=== PATIENT | female | born 1965 | race Caucasian/White ===

== ENCOUNTER 2017-02-06 07:54 | Inpatient (IN) | payer BC ==
[2017-02-06] MEDS ORDERED: 0.9 % SODIUM CHLORIDE 1,000 ML BAG IV ONE (07:55)
[2017-02-06] MEDS ORDERED: ONDANSETRON HCL IV 4 MG/2 ML VIAL IV ONE (07:55)
[2017-02-06] MEDS ORDERED: MORPHINE SULFATE 5 MG/ML PFS IVP ONE ×3 (07:56→12:12)
--- NOTE | 2017-02-06 08:06 | Emergency Department Record ---
History of Present Illness - General Chief Complaint: Abdominal Pain Stated Complaint: ABD PAIN Time Seen by Provider: 02/06/17 07:55 Source: Patient, Family Mode of Arrival: Ambulatory Limitations: No limitations - History of Present Illness Initial Comments: 51 yo presents abdominal pain that started at 4am. She has cramps, nausea, and vomiting. She has had loose stools as well. No fever. She has a history of appendicitis and adhesions. The last 2 weeks she has noted feeling bloated at times. Past Surgical History includes X's 2, Appendectomy (1994 in [facility]), Adhesions (1994 in [facility]). MD Complaint: Abdominal pain -: Hour(s) (4 hours) Location: Epigastric Radiation: Epigastric Migration to: Epigastric, Periumbilical Severity: Severe Quality: Aching Consistency: Constant Improves With: Nothing Worsens With: Eating Associated Symptoms: Anorexia, Diarrhea, Nausea, Vomiting - Related Data Previous Rx's Medication Instructions Recorded Metoprolol Tartrate [Lopressor] 50 mg PO BID #60 tablet 02/17/15 Allergies Allergy/AdvReac Type Severity Reaction Status Date / Time No Known Drug Allergies Allergy Verified 08/18/16 12:55 Review of Systems Constitutional: Denies: Chills, Fever, Malaise, Weakness Eyes: Denies: Eye discharge ENT: Denies: Congestion, Throat pain Respiratory: Denies: Cough, Dyspnea, Hemoptysis, Stridor, Wheezes Cardiovascular: Denies: Chest pain, Palpitations, Syncope Endocrine: Denies: Fatigue Gastrointestinal: Reports: As per HPI, Abdominal pain, Diarrhea, Nausea, Vomiting Genitourinary: Denies: Dysuria, Urgency Musculoskeletal: Denies: Arthralgia, Back pain, Myalgia, Neck pain Skin: Denies: Bruising, Change in color, Rash Neurological: Denies: Headache Psychiatric: Denies: Anxiety Hematological/Lymphatic: Denies: Blood Clots, Easy bleeding, Easy bruising, Swollen glands Past Medical History - SOCIAL HISTORY Smoking Status: Light tobacco smoker (<10/day) Drug Use Detail:: Marijuana - RESPIRATORY Hx Respiratory Disorders: Yes Hx Bronchitis: Yes Hx COPD: Yes Comment:: smoker - CARDIOVASCULAR Hx Cardio Disorders: Yes Hx Hypertension: Yes - NEURO Hx Neuro Disorders: Yes Comment:: MS - GI Hx GI Disorders: No - Hx Genitourinary Disorders: No Comment:: not normal x 1 yr - ENDOCRINE Hx Endocrine Disorders: No - MUSCULOSKELETAL Hx Musculoskeletal Disorders: Yes Comment:: MS, crushed left hand with plate inserted - PSYCH Hx Psych Problems: No - HEMATOLOGY/ONCOLOGY Hx Hematology/Oncology Disorders: No Family Medical History Hx Diabetes: Brother/Sister Hx Heart Disease: Grandparents Hx HTN: Father Physical Exam - General General Appearance: Alert, Oriented x3, Cooperative, No acute distress Limitations: No limitations - Head Head exam: Normal inspection - Eye Eye exam: Normal appearance, PERRL - ENT ENT exam: Normal exam, Mucous membranes moist, Normal external ear exam Ear exam: Normal external inspection Nasal Exam: Normal inspection Mouth exam: Normal external inspection Teeth exam: Normal inspection - Neck Neck exam: Normal inspection, Full ROM. negative: Tenderness - Respiratory Respiratory exam: Normal lung sounds bilaterally. negative: Respiratory distress - Cardiovascular Cardiovascular Exam: Regular rate, Normal rhythm, Normal heart sounds - GI/Abdominal GI/Abdominal exam: Soft, Guarding, Tenderness. negative: Distended, Rebound - Rectal Rectal exam: Deferred - exam: Deferred - Extremities Extremities exam: Normal inspection - Back Back exam: Reports: Normal inspection, Full ROM. Denies: Muscle spasm, Rash noted, Tenderness - Neurological Neurological exam: Alert, Normal gait, Oriented X3 - Psychiatric Psychiatric exam: Normal affect, Normal mood. negative: Agitated, Anxious - Skin Skin exam: Dry, Intact, Normal color, Warm Course - Reevaluation(s) Reevaluation #1: The lab tests were reviewed WBC count is 20 No acute changes on the CMP or Lipase 02/06/17 08:27 Reevaluation #2: The patient is much improved after the medications She is tolerating the PO contrast at this time 02/06/17 08:50 02/06/17 08:55 The patient now reports nausea and cramps returning 02/06/17 10:54 02/06/17 10:55 Reevaluation #3: The CT scan report was reviewed. No acute changes on the CT scan. No obstruction. No inflammatory changes. The results were discussed with the patient. Given her elevated WBC count, cramps I recommended admit [facility] for IVF, supportive care and ensure resolution. No acute surgical findings Given several loose stools a STOOL STUDY with be ordered. 02/06/17 11:28 Reevaluation #4: I NEREIDA Morgan of the admitting service for [facility]. The patient is improving but will be slowing progressed with diet No acute surgical issue at this time on exam or CT. 02/06/17 11:49 Medical Decision Making - Lab Data Result diagrams: 02/06/17 08:05 02/06/17 08:05 Disposition Disposition: Admit Clinical Impression: Elevated white blood cell count Qualifiers: Leukocytosis type: unspecified Qualified Code(s): D72.829 - Elevated white blood cell count, unspecified Abdominal pain Qualifiers: Abdominal location: generalized Qualified Code(s): R10.84 - Generalized abdominal pain Diarrhea Qualifiers: Diarrhea type: unspecified type Qualified Code(s): R19.7 - Diarrhea, unspecified Vomiting Qualifiers: Vomiting type: unspecified Vomiting Intractability: intractable Nausea presence : with nausea Qualified Code(s): R11.2 - Nausea with vomiting, unspecified Disposition: Still a Patient at [facility] Decision to Admit: Admit from ER Decision to Admit Date: 02/06/17 Decision to Admit Time: 11:43 Condition: (2) Stable Forms: Patient Portal Access Time of Disposition: 11:43
[2017-02-06 08:14] LABS: HEMATOCRIT 47.3 % (35.0-47.0); HEMOGLOBIN 15.6 gm/dl (11.6-16.0); MEAN CELL VOLUME 93.1 fl (81-97); MEAN CORPUSCULAR HEMOGLOBIN 30.7 pg (27-33); MEAN PLATELET VOLUME 10.4 fl (7.4-10.4); PLATELET COUNT 390 K/uL (130-400); RED BLOOD COUNT 5.08 M/uL (3.80-5.40); RED CELL DISTRIBUTION WIDTH 13.7 % (11.5-14.5)
[2017-02-06 08:16] LABS: WHITE BLOOD COUNT W/O DIFF 20.8 K/uL (4.2-12.2)
[2017-02-06 08:23] LABS: ALB/GLOB RATIO 1.3 (1.1-1.8); ALBUMIN 4.9 gm/dL (3.5-5.0); ALKALINE PHOSPHATASE 92 U/L (38-126); ALT/SGPT 21 U/L (9-52); ANION GAP 11.9 (7-16); AST/SGOT 30 U/L (14-36); BLOOD UREA NITROGEN 22 mg/dL (7-17); CARBON DIOXIDE 26.1 mmol/L (22-30); CREATININE 0.8 mg/dL (0.52-1.04); EST GLOMERULAR FILTRATION RATE > 60 ml/min; GLUCOSE,RANDOM 101 mg/dL (70-110); LIPASE 69 U/L (23-300); TOTAL PROTEIN 8.8 gm/dL (6.3-8.2)
[2017-02-06 08:24] LABS: PLATELET ESTIMATE NORMAL (NORMAL)
[2017-02-06] MEDS ORDERED: ONDANSETRON HCL IV 4 MG/2 ML VIAL IVP ONE (08:54)
[2017-02-06] MEDS ORDERED: 0.9 % SODIUM CHLORIDE 1000ML 1,000 ML IV PRN ×2 (09:28→11:43)
[2017-02-06 09:58] LABS: URINE APPEARANCE CLEAR; URINE BILIRUBIN NEGATIVE (NEGATIVE); URINE BLOOD SMALL (NEGATIVE); URINE COLOR YELLOW; URINE GLUCOSE (UA) NEGATIVE (NEGATIVE); URINE KETONE NEGATIVE (NEGATIVE); URINE LEUKOCYTE ESTERASE NEGATIVE (NEGATIVE); URINE NITRITE NEGATIVE (NEGATIVE); URINE PROTEIN NEGATIVE (NEGATIVE); URINE UROBILINOGEN 0.2 E.U./dL (0.20 - 1.00)
[2017-02-06 10:04] LABS: URINE BACTERIA NONE SEEN; URINE EPITHELIAL CELLS 0 - 2 (FEW); URINE WBC NONE SEEN (0-2/hpf)
[2017-02-06] MEDS ORDERED: ACETAMINOPHEN 1,000 MG/100 ML BTL IVPB ONE (11:10)
[2017-02-06] MEDS ORDERED: MORPHINE SULFATE 5 MG/ML PFS IM PRN (11:43)
[2017-02-06] MEDS ORDERED: ONDANSETRON HCL IV 4 MG/2 ML VIAL IVP PRN ×2 (11:43→14:08)
[2017-02-06] MEDS ORDERED: ACETAMINOPHEN 1,000 MG/100 ML BTL IVPB SCH (11:45)
[2017-02-06] MEDS ORDERED: FLU VAC QS 2016-17 (INPT, 3YR+) 60MCG/0.5ML IM ONE (13:53)
[2017-02-06] MEDS ORDERED: MORPHINE SULFATE 5 MG/ML PFS IVP PRN (14:08)
[2017-02-06] MEDS: 0.9 % SODIUM CHLORIDE 1000ML 1,000 ML IV SCH ×2 (14:14→21:35)
[2017-02-06] MEDS ORDERED: NICOTINE 21 MG/24 HOUR PATCH TD SCH (17:00)
[2017-02-06] MEDS: MORPHINE SULFATE 5 MG/ML PFS IVP PRN ×2 (17:03→21:31)
[2017-02-06] MEDS: DICYCLOMINE HCL 10 MG CAPSULE PO SCH ×2 (17:10→21:31)
--- NOTE | 2017-02-06 18:20 | History & Physical ---
History of Present Illness - Date of Service Date of Service for History & Physical: 02/07/17 - History of Present Illness Admitting Diagnosis: NVD, Abdominal Pain History of Present Illness: 51 y/o female with CC 2 week history of abdoinal pain, nausea, and vomiting, diarrhea admitted for abdominal pain and leukocytosis. PMH: COPD, smoker, bronchitis, TIA, HTN, MS PSH: x3, right hand with plate, left foot bunion, lumpectomy left breast, right elbow, appendectomy, exploratory lap for intraabdominal adhesions 1994 Dr Hamm Prior to admit reports a 2 week history of abdominal bloating, gas, and decreased appetite, diarrhea, and abdominal cramping. This morning woke at 4am with explosive diarrhea, bowel incontinence, vomiting and significant worsening of abdominal pain. Denies hx diverticulitis, has never had colonoscopy. This same type of pain happened about 20 years ago after her appendix was removed and was told it was abdominal adhesions. Denies fever, chills, blood in stool or vomit. While in the ED VSS, WBC elevated, morphine sulfate given for abdominal pain. CT abdomen/pelvis negative for acute process. Admitted to observation for lab monitoring, IVF, pain management, clear liquid diet advance as tolerated Laboratory Results WBC 20.8 K/uL (4.2-12.2) H* 02/06/17 08:05 RBC 5.08 M/uL (3.80-5.40) 02/06/17 08:05 Hgb 15.6 gm/dl (11.6-16.0) 02/06/17 08:05 Hct 47.3 % (35.0-47.0) H 02/06/17 08:05 MCV 93.1 fl (81-97) 02/06/17 08:05 MCH 30.7 pg (27-33) 02/06/17 08:05 MCHC 33.0 g/dl (32-36) 02/06/17 08:05 RDW 13.7 % (11.5-14.5) 02/06/17 08:05 Plt Count 390 K/uL (130-400) 02/06/17 08:05 MPV 10.4 fl (7.4-10.4) 02/06/17 08:05 Neutrophils % 79.0 % (47-80) 02/06/17 08:05 Eosinophils % Not Reportable 02/06/17 08:05 Basophils % Not Reportable 02/06/17 08:05 Lymphocytes 13.0 % (16-45) L 02/06/17 08:05 Monocytes 7.0 % (0-9) 02/06/17 08:05 Platelet Estimate Normal (NORMAL) 02/06/17 08:05 RBC Morphology Normal 02/06/17 08:05 Eosinophil Count 1.0 % (0-6) 02/06/17 08:05 Sodium 144 mmol/L (136-145) 02/06/17 08:05 Potassium 4.1 mmol/L (3.5-5.1) 02/06/17 08:05 Chloride 106 mmol/L (98-107) 02/06/17 08:05 Carbon Dioxide 26.1 mmol/L (22-30) 02/06/17 08:05 Anion Gap 11.9 (7-16) 02/06/17 08:05 BUN 22 mg/dL (7-17) H 02/06/17 08:05 Creatinine 0.8 mg/dL (0.52-1.04) 02/06/17 08:05 Estimated GFR > 60 ml/min 02/06/17 08:05 Random Glucose 101 mg/dL (70-110) 02/06/17 08:05 Lactic Acid 1.9 mmol/L (0.7-2.1) 02/06/17 08:05 Calcium 10.2 mg/dL (8.5-10.1) H 02/06/17 08:05 Total Bilirubin 0.50 mg/dL (0.2-1.3) 02/06/17 08:05 AST 30 U/L (14-36) 02/06/17 08:05 ALT 21 U/L (9-52) 02/06/17 08:05 Alkaline Phosphatase 92 U/L (38-126) 02/06/17 08:05 Total Protein 8.8 gm/dL (6.3-8.2) H 02/06/17 08:05 Albumin 4.9 gm/dL (3.5-5.0) 02/06/17 08:05 Globulin 3.9 gm/dL (1.4-4.8) 02/06/17 08:05 Albumin/Globulin Ratio 1.3 (1.1-1.8) 02/06/17 08:05 Lipase 69 U/L (23-300) 02/06/17 08:05 Urine Color Yellow 02/06/17 09:50 Urine Appearance Clear 02/06/17 09:50 Urine pH 5.5 (5.0-8.0) 02/06/17 09:50 Ur Specific [place] 1.010 (1.002-1.030) 02/06/17 09:50 Urine Protein Negative (NEGATIVE) 02/06/17 09:50 Urine Glucose (UA) Negative (NEGATIVE) 02/06/17 09:50 Urine Ketones Negative (NEGATIVE) 02/06/17 09:50 Urine Blood Small (NEGATIVE) H 02/06/17 09:50 Urine Nitrite Negative (NEGATIVE) 02/06/17 09:50 Urine Bilirubin Negative (NEGATIVE) 02/06/17 09:50 Urine Urobilinogen 0.2 E.U./dL (0.20 - 1.00) 02/06/17 09:50 Ur Leukocyte Esterase Negative (NEGATIVE) 02/06/17 09:50 Urine RBC 3 - 6 (NONE SEEN) 02/06/17 09:50 Urine WBC None seen (0-2/hpf) 02/06/17 09:50 Ur Epithelial Cells 0 - 2 (FEW) 02/06/17 09:50 Urine Bacteria None seen 02/06/17 09:50 Vital Signs - Last 24 Hrs Temp Pulse Pulse Resp BP BP Pulse Ox 02/06/17 15:34 24 02/06/17 14:09 7.7 F L 68 24 114/67 95 02/06/17 13:19 65 14 97/63 97 02/06/17 11:06 90 16 126/79 98 02/06/17 10:02 83 16 121/98 100 02/06/17 09:30 87 16 137/93 100 02/06/17 09:00 87 16 139/88 100 02/06/17 07:55 98.1 F 101 H 20 116/91 98 02/06/17- resting in bed, visibly uncomfortable, holding abdomen. Reports cramping feels like labor contractions. Denies any nausea. Is an everyday smoker and is having cravings. Denies chills. Understands plan of care PCP: Dr Chan ([facility]) Travel Screening - Travel/Exposure Within Last 30 Days Have you traveled within the last 30 days?: No - Travel/Exposure Within Last Year Have you traveled outside the [place] in the last year?: No - Additonal Travel Details Have you been exposed to anyone with a communicable illness?: No - Travel Symptoms Symptom Screening: None Review of Systems Constitutional: Denies: Chills, Fever, Malaise, Weakness Eyes: Denies: Eye discharge ENT: Denies: Congestion, Throat pain Respiratory: Denies: Cough, Dyspnea, Hemoptysis, Stridor, Wheezes Cardiovascular: Denies: Chest pain, Palpitations, Syncope Endocrine: Denies: Fatigue Gastrointestinal: Reports: As per HPI, Abdominal pain, Diarrhea, Nausea, Vomiting Genitourinary: Denies: Dysuria, Urgency Musculoskeletal: Denies: Arthralgia, Back pain, Myalgia, Neck pain Skin: Denies: Bruising, Change in color, Rash Neurological: Denies: Headache Psychiatric: Denies: Anxiety Hematological/Lymphatic: Denies: Blood Clots, Easy bleeding, Easy bruising, Swollen glands Past Medical History - SOCIAL HISTORY Smoking Status: Light tobacco smoker (<10/day) Alcohol Use: Occassional Drug Use: Occassional Drug Use Detail:: Marijuana - RESPIRATORY Hx Respiratory Disorders: Yes Hx Bronchitis: Yes Hx COPD: Yes Comment:: smoker - CARDIOVASCULAR Hx Cardio Disorders: Yes Hx Hypertension: Yes - NEURO Hx Neuro Disorders: Yes Comment:: MS - GI Hx GI Disorders: No Hx Abdominal Pain: Yes Comment:: scar tissue cut away from intestines. - Hx Genitourinary Disorders: No Comment:: not normal x 1 yr - ENDOCRINE Hx Endocrine Disorders: No Hx Diabetes: No Hx Thyroid Disease: No - MUSCULOSKELETAL Hx Musculoskeletal Disorders: Yes Comment:: MS, crushed left hand with plate inserted - PSYCH Hx Psych Problems: No - HEMATOLOGY/ONCOLOGY Hx Hematology/Oncology Disorders: No Family Medical History Any Significant Family History?: No Hx Diabetes: Brother/Sister Hx Heart Disease: Grandparents Hx HTN: Father H&P Meds/Allergies - Allergies Allergies: Allergies Allergy/AdvReac Type Severity Reaction Status Date / Time No Known Drug Allergies Allergy Verified 08/18/16 12:55 - Home Medications Previous Rx's Medication Instructions Recorded Metoprolol Tartrate [Lopressor] 50 mg PO BID #60 tablet 02/17/15 - Active Medications Active Medications: Current Medications Dicyclomine HCl (Bentyl) 10 mg PO QIDACHS [facility] Last Admin: 02/06/17 17:10 Dose: 10 mg Sodium Chloride () 1,000 mls @ 125 mls/hr IV .Q8H [facility] Last Admin: 02/06/17 14:14 Dose: Not Given Morphine Sulfate (Morphine Sulfate) 2.5 mg IVP Q4H PRN PRN Reason: Pain - General Stop: 02/13/17 16:53 Last Admin: 02/06/17 14:22 Dose: 2.5 mg Morphine Sulfate (Morphine Sulfate) 5 mg IVP Q4HR PRN PRN Reason: Abdominal Pain Stop: 02/13/17 16:54 Last Admin: 02/06/17 17:03 Dose: 5 mg Nicotine (Nicotine 21mg) 1 patch TD Q24H [facility] Last Admin: 02/06/17 17:06 Dose: 1 patch Ondansetron HCl (Zofran) 4 mg IVP Q4H PRN PRN Reason: NAUSEA/VOMITING Physical Exam - Vital Signs Vital Signs: Vital Signs - Last 24 Hrs Temp Pulse Resp BP Pulse Ox 02/06/17 15:34 24 02/06/17 14:09 7.7 F L 68 24 114/67 95 - General General Appearance: Alert, Oriented x3, Cooperative, No acute distress Limitations: No limitations - Head Head exam: Normal inspection - Eye Eye exam: Normal appearance, PERRL - ENT ENT exam: Normal exam, Mucous membranes moist, Normal external ear exam Ear exam: Normal external inspection Nasal Exam: Normal inspection Mouth exam: Normal external inspection Teeth exam: Normal inspection - Neck Neck exam: Normal inspection, Full ROM. negative: Tenderness - Respiratory Respiratory exam: Normal lung sounds bilaterally. negative: Respiratory distress - Cardiovascular Cardiovascular Exam: Regular rate, Normal rhythm, Normal heart sounds Peripheral Pulses: 2+: Dorsalis Pedis (R), Dorsalis Pedis (L) - GI/Abdominal GI/Abdominal exam: Soft, Guarding, Tenderness (generalized). negative: Distended, Rebound - Rectal Rectal exam: Deferred - exam: Deferred - Extremities Extremities exam: Normal inspection - Back Back exam: Reports: Normal inspection, Full ROM. Denies: Muscle spasm, Rash noted, Tenderness - Neurological Neurological exam: Alert, Normal gait, Oriented X3 - Psychiatric Psychiatric exam: Normal affect, Normal mood. negative: Agitated, Anxious - Skin Skin exam: Dry, Intact, Normal color, Warm Results - Labs Result Diagrams: 02/07/17 08:30 02/07/17 08:30 - Imaging and Cardiology CT scan - abdomen Status: Report reviewed (no acute process) VTE H&P Assessment - Risk for VTE Risk for VTE: Yes Risk Level: Low Risk Assessment Date: 02/06/17 Risk Assessment Time: 19:33 VTE Orders Placed or Will Be Placed: Yes Plan - Detailed Diagnosis and Plan (1) Abdominal pain Current Visit: Yes Status: Acute Qualifiers: Abdominal location: generalized Qualified Code(s): R10.84 - Generalized abdominal pain Base Code: R10.9 - UNSPECIFIED ABDOMINAL PAIN Comment: 02/06/17- 51 y/o admitted for 2 week history abdominal pain, bloating, usea,nvomiting, diarrhea. CT abdomen negative for acute process, no hx diverticulitis. WBC elevated at 20.8. - continue IVF - supportive care - CBC/CMP in am to trend WBC - clear liquid diet, advance as tolerated - zofran for nausea - bentyl for cramping - may need to consider surgical consult should symptoms not improve over the next 24 hours (2) Diarrhea Current Visit: Yes Status: Acute Qualifiers: Diarrhea type: unspecified type Qualified Code(s): R19.7 - Diarrhea, unspecified Base Code: R19.7 - DIARRHEA, UNSPECIFIED Comment: 02/06/17- 51 y/o admitted for 2 week history abdominal pain, bloating, usea,nvomiting, diarrhea. CT abdomen negative for acute process, no hx diverticulitis. WBC elevated at 20.8. - continue IVF - supportive care - CBC/CMP in am to trend WBC - clear liquid diet, advance as tolerated - zofran for nausea - bentyl for cramping - stool studies pending to rule out infectious process - may need to consider surgical consult should symptoms not improve over the next 24 hours (3) Elevated white blood cell count Current Visit: Yes Status: Acute Qualifiers: Leukocytosis type: unspecified Qualified Code(s): D72.829 - Elevated white blood cell count, unspecified Base Code: D72.829 - ELEVATED WHITE BLOOD CELL COUNT, UNSPECIFIED Comment: - 51 y/o admitted for 2 week history abdominal pain, bloating, usea, nvomiting, diarrhea. CT abdomen negative for acute process, no hx diverticulitis. WBC elevated at 20.8. - continue IVF - supportive care - CBC/CMP in am to trend WBC - clear liquid diet, advance as tolerated - zofran for nausea - bentyl for cramping - stool studies pending to rule out infectious process - may need to consider surgical consult should symptoms not improve over the next 24 hours (4) Vomiting Current Visit: Yes Status: Acute Qualifiers: Vomiting type: unspecified Vomiting Intractability: intractable Nausea presence: with nausea Qualified Code(s): R11.2 - Nausea with vomiting, unspecified Base Code: R11.10 - VOMITING, UNSPECIFIED Comment: 02/06/17- 51 y/o admitted for 2 week history abdominal pain, bloating, usea,nvomiting, diarrhea. CT abdomen negative for acute process, no hx diverticulitis. WBC elevated at 20.8. - continue IVF - supportive care - CBC/CMP in am to trend WBC - clear liquid diet, advance as tolerated - zofran for nausea - bentyl for cramping - stool studies pending to rule out infectious process - may need to consider surgical consult should symptoms not improve over the next 24 hours (5) DVT prophylaxis Current Visit: Yes Status: Acute Base Code: [id number] - Comment: 02/06/17- nursing to encourage frequent ambulation (6) Full code status Current Visit: Yes Status: Acute Base Code: Z78.9 - OTHER SPECIFIED HEALTH STATUS Comment: 02/06/17- will remain full code status during this hospitalization
[2017-02-06 19:23] LABS: CRYPTOSPORIDIUM PARVUM ANTIGEN NOT DETECTED (NOT DETECT)
[2017-02-06 19:24] LABS: GIARDIA LAMBLIA ANTIGEN NOT DETECTED (NOT DETECT); ROTOVIRUS NOT DETECTED (NOT DETECT)
[2017-02-06 19:46] LABS: MOLECULAR C DIFF TOXIN SCREEN NOT DETECTED
[2017-02-07] MEDS: MORPHINE SULFATE 5 MG/ML PFS IVP PRN ×4 (02:12→14:18)
[2017-02-07] MEDS: DICYCLOMINE HCL 10 MG CAPSULE PO SCH ×2 (06:39→12:11)
[2017-02-07] MEDS: 0.9 % SODIUM CHLORIDE 1000ML 1,000 ML IV SCH (06:39)
--- NOTE | 2017-02-07 07:20 | CT SCAN REPORT ---
EXAM: CT OF THE ABDOMEN AND PELVIS WITH CONTRAST HISTORY: GENERALIZED ABDOMINAL PAIN AND BLOATING WITH NAUSEA AND VOMITING FOR THREE WEEKS. TECHNIQUE: Following oral and intravenous contrast administration, helical CT examination of the abdomen and pelvis was performed including delayed images through the kidneys with 100 ml of Omnipaque 300 utilized. Comparison: None. FINDINGS: A calcified granuloma is present in the anterior basal segment of the right lower lobe. This measures 5 mm. There is also a calcified lymph node in the inferior right hilum measuring 5 mm. Patchy predominantly linear opacities are scattered in each lung base consistent with scarring or atelectasis. The lung bases are otherwise clear and there is no pleural or pericardial effusion. The liver, spleen, pancreas, adrenal glands, and left kidney are normal in appearance. A couple too small to characterize hypodense lesions are questioned within the anterior mid right kidney. These are nonspecific, but likely cysts. The right kidney is otherwise normal in appearance. The gallbladder is unremarkable. No biliary ductal dilatation is seen. No intraabdominal nor retroperitoneal lymphadenopathy is identified. There is mild diffuse atherosclerosis without aneurysmal dilatation of the abdominal aorta nor iliac arteries. No pelvic mass, lymphadenopathy, or free pelvic fluid. The uterus is surgically absent. The appendix is also likely surgically absent. No intrinsic urinary bladder abnormality is seen. No gross bowel dilatation nor bowel wall thickening identified. No free intraperitoneal air. No lytic or blastic bone lesion is seen. Mild degenerative changes scattered within the visualized spine. There is suggestion of a central-left paracentral disk protrusion at the L5-S1 level superimposed on disk bulging causing mild mass effect on the thecal sac and probable mass effect on the left S1 nerve root. IMPRESSION: 1. NO CONVINCING CT EVIDENCE OF AN ACUTE INTRAABDOMINAL NOR INTRAPELVIC PROCESS. 2. APPARENT SURGICAL ABSENCE OF THE UTERUS AND APPENDIX. 3. THERE ARE A COUPLE TOO SMALL TO CHARACTERIZE HYPODENSE LESIONS IN THE ANTERIOR MID RIGHT KIDNEY. NOT MENTIONED ABOVE IS A TINY TOO SMALL TO CHARACTERIZE HYPODENSE LESION IN THE ANTERIOR MID LEFT KIDNEY. THESE ARE NONSPECIFIC, BUT LIKELY CYSTS. 4. HEALED GRANULOMATOUS DISEASE WITHIN THE VISUALIZED RIGHT HEMITHORAX. 5. MINOR PATCHY PREDOMINANTLY LINEAR OPACITIES IN EACH LUNG BASE CONSISTENT WITH ATELECTASIS OR SCARRING. 6. APPARENT CENTRAL-LEFT PARACENTRAL DISK PROTRUSION SUPERIMPOSED ON DISK BULGING AT THE L5-S1 LEVEL CAUSING MILD MASS EFFECT ON THE THECAL SAC AND PROBABLE MASS EFFECT ON THE LEFT S1 NERVE ROOT. JOB NUMBER: [id number] AND [id number] [facility]
[2017-02-07 08:46] LABS: BASO % 0.4 % (0-6); EOS % 5.3 % (0-6); GRAN % 50.5 % (47-80); HEMATOCRIT 41.1 % (35.0-47.0); LYMPH % 36.9 % (16-45); MEAN CELL VOLUME 95.4 fl (81-97); MEAN CORPUSCULAR HEMOGLOBIN 30.2 pg (27-33); MEAN CORPUSCULAR HGB CONC 31.6 g/dl (32-36); MEAN PLATELET VOLUME 10.3 fl (7.4-10.4); MONO % 6.9 % (0-9); PLATELET COUNT 338 K/uL (130-400); RED BLOOD COUNT 4.31 M/uL (3.80-5.40); RED CELL DISTRIBUTION WIDTH 13.7 % (11.5-14.5)
[2017-02-07 08:54] LABS: ALB/GLOB RATIO 1.3 (1.1-1.8); ALKALINE PHOSPHATASE 82 U/L (38-126); ALT/SGPT 20 U/L (9-52); ANION GAP 7.1 (7-16); AST/SGOT 22 U/L (14-36); BILIRUBIN,TOTAL 0.79 mg/dL (0.2-1.3); BLOOD UREA NITROGEN 8 mg/dL (7-17); CARBON DIOXIDE 22.9 mmol/L (22-30); CREATININE 0.6 mg/dL (0.52-1.04); EST GLOMERULAR FILTRATION RATE > 60 ml/min; GLUCOSE,RANDOM 90 mg/dL (70-110); TOTAL PROTEIN 7.2 gm/dL (6.3-8.2)
--- NOTE | 2017-02-07 11:44 | Physician Progress Note ---
Subjective - Date Date of Physician Progress Note: 02/07/17 - Subjective Subjective Comment: Reports abdominal pain has worsened over night, morphine is now working for pain. Pain feels less like labor contractions. Pain is not-stop and consistent, sharp. No nausea or vomiting. Has not had any stooling since last night. Has no appetite. Afebrile Objective - Vital Signs Vital Signs: Vital Signs - Last 24 Hrs Temp Pulse Resp BP Pulse Ox 02/07/17 09:00 18 02/07/17 06:00 98.0 F 78 18 121/73 96 02/07/17 02:00 98.0 F 62 20 132/89 98 02/06/17 20:30 97.5 F L 64 20 120/84 100 02/06/17 18:09 97.9 F 61 18 107/66 96 02/06/17 15:34 24 02/06/17 14:09 7.7 F L 68 24 114/67 95 - General General Appearance: Alert, Oriented x3, Cooperative, Mild distress Limitations: No limitations - Head Head exam: Normal inspection - Eye Eye exam: Normal appearance, PERRL - ENT ENT exam: Normal exam, Mucous membranes moist, Normal external ear exam Ear exam: Normal external inspection Nasal Exam: Normal inspection Mouth exam: Normal external inspection Teeth exam: Normal inspection - Neck Neck exam: Normal inspection, Full ROM. negative: Tenderness - Respiratory Respiratory exam: Normal lung sounds bilaterally. negative: Respiratory distress - Cardiovascular Cardiovascular Exam: Regular rate, Normal rhythm, Normal heart sounds Peripheral Pulses: 2+: Dorsalis Pedis (R), Dorsalis Pedis (L) - GI/Abdominal GI/Abdominal exam: Soft, Distended, Guarding, Tenderness (generalized). negative: Bruit, Pulsatile mass, Rebound - Rectal Rectal exam: Deferred - exam: Deferred - Extremities Extremities exam: Normal inspection - Back Back exam: Reports: Normal inspection, Full ROM. Denies: Muscle spasm, Rash noted, Tenderness - Neurological Neurological exam: Alert, Normal gait, Oriented X3 - Psychiatric Psychiatric exam: Normal affect, Normal mood. negative: Agitated, Anxious - Skin Skin exam: Dry, Intact, Normal color, Warm Assessment and Plan - Assessment and Plan (1) Abdominal pain Current Visit: Yes Status: Acute Qualifiers: Abdominal location: generalized Qualified Code(s): R10.84 - Generalized abdominal pain Base Code: R10.9 - UNSPECIFIED ABDOMINAL PAIN Comment: 02/07/17- 51 y/o admitted for 2 week history abdominal pain, bloating, nausea, vomiting, diarrhea. CT abdomen negative for acute process, no hx diverticulitis. WBC elevated at 20.8 on admission - pain not controlled on Morphine 2.5mg q 4 hours PRN, increased to 5mg q 4 hrs last night with no improvement, increased to 5mg q 2 hrs PRN this am for abdominal pain 05/29 - increased abdominal distention today - pain siginficanty increased and diffuse today - CTA abdomen/pelvis stat to r/o ischemic bowel - continue IVF - supportive care - WBC normalized today - clear liquid diet, advance as tolerated - zofran for nausea - bentyl for cramping - may need to consider surgical consult pending CTA abdomen/pelvis results (2) Diarrhea Current Visit: Yes Status: Acute Qualifiers: Diarrhea type: unspecified type Qualified Code(s): R19.7 - Diarrhea, unspecified Base Code: R19.7 - DIARRHEA, UNSPECIFIED Comment: [birth year]51 y/o admitted for 2 week history abdominal pain, bloating, usea,nvomiting, diarrhea. CT abdomen negative for acute process, no hx diverticulitis. WBC elevated at 20.8 on admit, normalized after 24 hours. - stool studies negative for acute process, does have + occult stool, Hgb normal , likely from intestinal erosion 2nd colitis - continue IVF - supportive care - CBC/CMP in am - clear liquid diet, advance as tolerated - zofran for nausea - bentyl for cramping - may need to consider surgical consult after CTA abdomen/pelvis complete (3) Elevated white blood cell count Current Visit: Yes Status: Acute Qualifiers: Leukocytosis type: unspecified Qualified Code(s): D72.829 - Elevated white blood cell count, unspecified Base Code: D72.829 - ELEVATED WHITE BLOOD CELL COUNT, UNSPECIFIED Comment: - 51 y/o admitted for 2 week history abdominal pain, bloating, usea, nvomiting, diarrhea. CT abdomen negative for acute process, no hx diverticulitis. WBC elevated at 20.8. - WBC normalized today - continue IVF - supportive care - CBC/CMP in am to trend WBC - clear liquid diet, advance as tolerated - zofran for nausea - bentyl for cramping - stool studies negative for infectious process - may need to consider surgical consult after CTA abdomen/pelvis results (4) Vomiting Current Visit: Yes Status: Acute Qualifiers: Vomiting type: unspecified Vomiting Intractability: intractable Nausea presence: with nausea Qualified Code(s): R11.2 - Nausea with vomiting, unspecified Base Code: R11.10 - VOMITING, UNSPECIFIED Comment: 02/07/17- 51 y/o admitted for 2 week history abdominal pain, bloating, usea,nvomiting, diarrhea. CT abdomen negative for acute process, no hx diverticulitis. WBC elevated at 20.8 on admit, normalized today. - no stools since last night - continue IVF - supportive care - CBC/CMP in am to trend WBC - clear liquid diet, advance as tolerated - zofran for nausea - bentyl for cramping - stool studies negative for infectious process - may need to consider surgical consult (5) DVT prophylaxis Current Visit: Yes Status: Acute Base Code: [id number] - Comment: 02/07/17- nursing to encourage frequent ambulation (6) Full code status Current Visit: Yes Status: Acute Base Code: Z78.9 - OTHER SPECIFIED HEALTH STATUS Comment: 02/07/17- will remain full code status during this hospitalization Results - Labs Result Diagrams: 02/07/17 08:30 02/07/17 08:30 Labs Last 24 Hours: Laboratory Results - last 24 hr 02/06/17 02/06/17 02/06/17 18:35 18:35 18:35 WBC RBC Hgb Hct MCV MCH MCHC RDW Plt Count MPV Gran % Lymphocytes % Monocytes % Eosinophils % Basophils % Sodium Potassium Chloride Carbon Dioxide Anion Gap BUN Creatinine Estimated GFR Random Glucose Calcium Total Bilirubin AST ALT Alkaline Phosphatase Total Protein Albumin Globulin Albumin/Globulin Ratio Stool Occult Blood Positive Stool for White Cells No wbc's observed Rotavirus Antigen Not detected C. difficile Ag & Toxin Not detected Cryptosporid parvum Ag Not detected Giardia lamblia Ag Not detected 02/07/17 02/07/17 08:30 08:30 WBC 8.0 RBC 4.31 Hgb 13.0 Hct 41.1 MCV 95.4 MCH 30.2 MCHC 31.6 L RDW 13.7 Plt Count 338 MPV 10.3 Gran % 50.5 Lymphocytes % 36.9 Monocytes % 6.9 Eosinophils % 5.3 Basophils % 0.4 Sodium 142 Potassium 4.2 Chloride 112 H Carbon Dioxide 22.9 Anion Gap 7.1 BUN 8 Creatinine 0.6 Estimated GFR > 60 Random Glucose 90 Calcium 8.9 Total Bilirubin 0.79 AST 22 ALT 20 Alkaline Phosphatase 82 Total Protein 7.2 Albumin 4.0 Globulin 3.2 Albumin/Globulin Ratio 1.3 Stool Occult Blood Stool for White Cells Rotavirus Antigen C. difficile Ag & Toxin Cryptosporid parvum Ag Giardia lamblia Ag DVT/PE Assessment - Risk for VTE Risk for VTE: No Risk Level: Low Risk Assessment Date: 02/06/17 Risk Assessment Time: 19:33 VTE Orders Placed or Will Be Placed: Yes - Active Medicaitons Current Medications: Current Medications Dicyclomine HCl (Bentyl) 10 mg PO QIDACHS [facility] Last Admin: 02/07/17 06:39 Dose: 10 mg Sodium Chloride () 1,000 mls @ 125 mls/hr IV .Q8H [facility] Last Admin: 02/07/17 06:39 Dose: 125 mls/hr Morphine Sulfate (Morphine Sulfate) 2.5 mg IVP Q4H PRN PRN Reason: Pain - General Stop: 02/13/17 16:53 Last Admin: 02/06/17 14:22 Dose: 2.5 mg Morphine Sulfate (Morphine Sulfate) 5 mg IVP Q2HR PRN PRN Reason: Abdominal Pain Stop: 02/13/17 16:54 Last Admin: 02/07/17 10:18 Dose: 5 mg Nicotine (Nicotine 21mg) 1 patch TD Q24H [facility] Last Admin: 02/06/17 17:06 Dose: 1 patch Ondansetron HCl (Zofran) 4 mg IVP Q4H PRN PRN Reason: NAUSEA/VOMITING AMI Plan - Labs Result Diagrams: 02/07/17 08:30 02/07/17 08:30
--- NOTE | 2017-02-07 14:40 | CT ANGIOGRAM REPORT ---
EXAM: CT ANGIOGRAM OF THE ABDOMEN AND PELVIS HISTORY: PATIENT HAS ABDOMINAL PAIN AND CRAMPING. TECHNIQUE: Serial axial CT angiogram of the abdomen and pelvis was performed at 2.5 mm intervals from the dome of the diaphragm down to the pubic symphysis following the intravenous administration of 100 ml of Omnipaque 350. Comparison: CT scan of the abdomen and pelvis dated 02/06/17 is provided. FINDINGS: The lung windows of the lung bases demonstrate mild subsegmental atelectasis at the bilateral posterior costophrenic angles. Within the left hepatic lobe there is a 4.3 mm focus of enhancement. Craniad to this lesion, there is a 3.5 mm focus of enhancement. These findings may represent flash filling of a small hemangioma. Of there is further clinical concern then a MRI of the liver can be obtained for further evaluation. The visualized spleen, pancreas, and bilateral adrenal glands are unremarkable. Contrast is noted within the lumen of the gallbladder which may be related to vicarious excretion. There is no CT evidence of hydronephrosis or hydroureter. No renal or ureteral calculi are noted. The contour, caliber, and flow within the abdominal aorta is within normal limits. Mild to moderate calcified atherosclerotic disease of the abdominal aorta is noted. The celiac artery, superior mesenteric artery, and inferior mesenteric arteries are widely patent. A single left sided renal artery and two right sided renal arteries are identified. The left renal artery is widely patent. The superior right renal artery is widely patent. There is moderate long segment narrowing of the origin of the inferior right renal artery from soft atherosclerotic disease. There is no CT evidence of retroperitoneal, pelvic, or inguinal lymphadenopathy. The bowel gas pattern is nonspecific and nonobstructive. There is no CT evidence of free intraperitoneal air. A small amount of dependent free intraperitoneal fluid is noted within the pelvis. The etiology is uncertain. This fluid has developed in the interval. The urinary bladder is unremarkable. The uterus is absent. Bone windows demonstrate no CT evidence of a fracture or dislocation of the visualized osseous structures of the abdomen and pelvis. IMPRESSION: 1. MODERATE LONG SEGMENT NARROWING OF THE INFERIOR RIGHT RENAL ARTERIES NOTED DISCUSSED ABOVE. 2. MILD TO MODERATE CALCIFIED AND SOFT ATHEROSCLEROTIC DISEASE OF THE ABDOMINAL AORTA IS NOTED. 3. SMALL AMOUNT OF FREE INTRAPERITONEAL FLUID HAS DEVELOPED IN COMPARISON WITH THE PRIOR CT SCAN. THE ETIOLOGY IS UNCERTAIN. 4. NONSPECIFIC PUNCTATE FOCI OF ENHANCEMENT WITHIN THE LEFT HEPATIC LOBE. THESE FINDINGS MAY REPRESENT FLASH FILLING OF HEMANGIOMAS. IF THERE IS FURTHER CLINICAL CONCERN THEN AN MRI OF THE LIVER CAN BE OBTAINED FOR FURTHER EVALUATION. JOB NUMBER: [id number] MTDD
--- NOTE | 2017-02-07 14:41 | Discharge Summary ---
Providers Discharge Summary Date: 02/07/17 Date of admission: 02/06/17 13:24 Expected Date of Discharge: 02/07/17 Attending physician: EDUARDO HAMLIN Primary care physician: SISSY KUMAR M.D. Physical Exam - Vital Signs Vital Signs: Vital Signs - Last 24 Hrs Temp Pulse Resp BP Pulse Ox 02/07/17 09:00 18 02/07/17 06:00 98.0 F 78 18 121/73 96 02/07/17 02:00 98.0 F 62 20 132/89 98 02/06/17 20:30 97.5 F L 64 20 120/84 100 02/06/17 18:09 97.9 F 61 18 107/66 96 02/06/17 15:34 24 - General General Appearance: Alert, Oriented x3, Cooperative, Moderate distress Limitations: No limitations - Head Head exam: Normal inspection - Eye Eye exam: Normal appearance, PERRL - ENT ENT exam: Normal exam, Mucous membranes moist, Normal external ear exam Ear exam: Normal external inspection Nasal Exam: Normal inspection Mouth exam: Normal external inspection Teeth exam: Normal inspection - Neck Neck exam: Normal inspection, Full ROM. negative: Tenderness - Respiratory Respiratory exam: Normal lung sounds bilaterally. negative: Respiratory distress - Cardiovascular Cardiovascular Exam: Regular rate, Normal rhythm, Normal heart sounds Peripheral Pulses: 2+: Dorsalis Pedis (R), Dorsalis Pedis (L) - GI/Abdominal GI/Abdominal exam: Soft, Distended, Guarding, Tenderness (generalized). negative: Bruit, Pulsatile mass, Rebound - Rectal Rectal exam: Deferred - exam: Deferred - Extremities Extremities exam: Normal inspection - Back Back exam: Reports: Normal inspection, Full ROM. Denies: Muscle spasm, Rash noted, Tenderness - Neurological Neurological exam: Alert, Normal gait, Oriented X3 - Psychiatric Psychiatric exam: Anxious. negative: Agitated - Skin Skin exam: Dry, Intact, Normal color, Warm Hospitalization - Hospitalization Admission Diagnosis: NVD, Abdominal Pain - Problem List/Discharge Diagnosis (1) Abdominal pain Current Visit: Yes Status: Acute Discharge Diagnosis: Abdominal location: generalized Qualified Code(s): R10.84 - Generalized abdominal pain Base Code: R10.9 - UNSPECIFIED ABDOMINAL PAIN Comment: 02/07/17- 51 y/o admitted for 2 week history abdominal pain, bloating, nausea, vomiting, diarrhea. CT abdomen negative for acute process, no hx diverticulitis. 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 He agrees to accept patient for transfer to [facility] for further work up of intractable abdominal pain with unclear etiology (2) Diarrhea Current Visit: Yes Status: Acute Discharge Diagnosis: Diarrhea type: unspecified type Qualified Code(s): R19.7 - Diarrhea, unspecified Base Code: R19.7 - DIARRHEA, UNSPECIFIED Comment: 02/07/17- 51 y/o admitted for 2 week history abdominal pain, bloating, nausea, vomiting, diarrhea. CT abdomen negative for acute process, no hx diverticulitis. 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 He agrees to accept patient for transfer to [facility] for further work up of intractable abdominal pain with unclear etiology (3) Elevated white blood cell count Current Visit: Yes Status: Acute Discharge Diagnosis: Leukocytosis type: unspecified Qualified Code(s): D72.829 - Elevated white blood cell count, unspecified Base Code: D72.829 - ELEVATED WHITE BLOOD CELL COUNT, UNSPECIFIED Comment: - 51 y/o admitted for 2 week history abdominal pain, bloating, nausea, vomiting, diarrhea. CT abdomen negative for acute process, no hx diverticulitis. 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 He agrees to accept patient for transfer to [facility] for further work up of intractable abdominal pain with unclear etiology (4) Vomiting Current Visit: Yes Status: Acute Discharge Diagnosis: Vomiting type: unspecified Vomiting Intractability: intractable Nausea presence: with nausea Qualified Code(s): R11.2 - Nausea with vomiting, unspecified Base Code: R11.10 - VOMITING, UNSPECIFIED Comment: 02/07/17- 51 y/o admitted for 2 week history abdominal pain, bloating, nausea, vomiting, diarrhea. CT abdomen negative for acute process, no hx diverticulitis. 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 He agrees to accept patient for transfer to [facility] for further work up of intractable abdominal pain with unclear etiology (5) DVT prophylaxis Current Visit: Yes Status: Acute Base Code: [id number] - Comment: 02/07/17- nursing to encourage frequent ambulation (6) Full code status Current Visit: Yes Status: Acute Base Code: Z78.9 - OTHER SPECIFIED HEALTH STATUS Comment: 02/07/17- will remain full code status during this hospitalization - Hospitalization Course Disposition: Acute Care Hospital Transfer Procedures: Imaging and X-Rays 02/07/17 08:49 ABDOMEN/PELVIS CTA [CTA] Stat Abnormal Labs: Abnormal Lab Results 02/07/17 02/07/17 Range/Units 08:30 08:30 MCHC 31.6 L (32-36) g/dl Chloride 112 H (98-107) mmol/L Condition at Discharge: (2) Stable Discharge Medications - Discharge Medications Home Medications: Ambulatory Orders Metoprolol Tartrate [Lopressor] 50 mg PO BID #60 tablet 02/17/15 [Last Taken ] Discharge Plan - Discharge Instructions Activity at Discharge: Increase Activity as Tolerated Diet at Discharge: Other (NPO until further orders from receiving hospital)
== END 2017-02-07 14:25 | disposition short-term general hospital (02) | DRG 392 ==
LOC: ER 07:54 → OBSVTOIN 13:24 → MEDSURG 13:24
PROVIDERS: ADMIT Family Medicine; ATTEND Family Medicine
DX: R10.84 Generalized abdominal pain (principal); R11.2 Nausea with vomiting, unspecified; R19.7 Diarrhea, unspecified; D72.829 Elevated white blood cell count, unspecified
CPT/HCPCS: 74174; 74177; 80053; 81001; 82272; 83605; 83690; 84443; 85025; 85027; 87329; 87425; 87427; 87493; 89055; 96361; 96374; 96375; 96376; 99223; 99285; J2405; J7030